=== PATIENT | female | born 1940 | race African-American/Black ===

== ENCOUNTER 2017-06-10 06:11 | Day surgery (SDC) | payer MEDICARE, MEDICAID ==
[~2017-06-10] VITALS: Ht 167.6 cm; Wt 80.7 kg
[~2017-06-10 06:11] MED LIST: APIX5TAB PO; CYCLOPENTOLATE HCL 1% OPHTH DROPS 2ML LEFTEYE NR; DILT240C3; DILT240C3 PO; LEVO75TA; MECL-109 PO; MELO-106 PO; OMEP20TA2 PO; OMEP40CA34; PHENYLEPHRINE HCL 10% OPHTH DROPS 5ML LEFTEYE NR; POTA20PA3; PRAV40TA58; TRIA1TAB92; TROPICAMIDE 1% OPHTH DROPS 15ML LEFTEYE NR; WARF2TAB57
[2017-06-10] MEDS ORDERED: LACTATED RINGERS 1,000 ML IV SCH (06:40)
[2017-06-10] MEDS ORDERED: BALANCED SALT IRRIG SOLN COMB1 500ML OP ONE (07:15)
[2017-06-10] MEDS ORDERED: HYALURONATE SODIUM 14 MG/ML 0.85ML SYRINGE IO ONE (07:35)
[2017-06-10] MEDS ORDERED: MEPERIDINE HCL/PF 25MG/ML CPJ IV PRN (07:45)
[2017-06-10] MEDS ORDERED: ONDANSETRON HCL 4MG/2ML VIAL IV PRN (07:45)
[2017-06-10] MEDS ORDERED: LABETALOL HCL 5MG/ML VIAL 20ML IV PRN (07:45)
[2017-06-10] MEDS ORDERED: FENTANYL CITRATE/PF 50MCG/ML 2ML VIAL ONE (07:47)
[2017-06-10] MEDS ORDERED: MIDAZOLAM HCL 2 MG/2 ML VIAL ONE (07:48)
[2017-06-10] MEDS ORDERED: PROPOFOL 200MG/20ML VIAL IV ONE (07:49)
[2017-06-10] MEDS ORDERED: LIDOCAINE HCL/PF 1% 10 MG/ML 5ML VIAL ONE (07:50)
[2017-06-10] MEDS ORDERED: TETRACAINE 0.5% OPHTH DROPS 4ML ONE (10:21)
[2017-06-10] MEDS ORDERED: LIDOCAINE HCL/PF 2% 20 MG/ML 10ML VIAL ONE (10:21)
[2017-06-10] MEDS ORDERED: CIPROFLOXACIN 0.3% OPHTH SOLN 2.5ML ONE (10:21)
[2017-06-10] MEDS ORDERED: BALANCED SALT IRRIG SOLN 15ML ONE (10:21)
[2017-06-10] MEDS ORDERED: NEO/POLYMYX B SULF/DEXAMETH OPHTH OINT 3.5GM ONE (10:21)
[2017-06-10] MEDS ORDERED: ACETYLCHOLINE CHLORIDE INTRAOCULAR SOLUTION 1:100 ELECTROLYTE DILUENT IO ONE (10:21)
[2017-06-10] MEDS ORDERED: LIDOCAINE HCL 2%/EPINEPHRINE 1:100,000 20 ML VIAL INFIL ONE (10:21)
[2017-06-10] MEDS ORDERED: PREDNISOLONE ACETATE 1% OPHTH DROPS 1ML ONE (10:21)
[2017-06-10] MEDS ORDERED: BUPIVACAINE HCL/PF 0.75% (7.5MG/ML) 10ML ONE (10:21)
== END 2017-06-10 09:45 | disposition home or self-care (01) ==
LOC: OR 06:11
PROVIDERS: ATTEND Ophthalmology
DX: H25.89 Other age-related cataract (principal); I10 Essential (primary) hypertension; E03.8 Other specified hypothyroidism; K21.9 Gastro-esophageal reflux disease without esophagitis; J45.909 Unspecified asthma, uncomplicated; E78.00 Pure hypercholesterolemia, unspecified; M19.90 Unspecified osteoarthritis, unspecified site; Z98.890 Other specified postprocedural states; Z90.710 Acquired absence of both cervix and uterus; Z85.3 Personal history of malignant neoplasm of breast; Z85.850 Personal history of malignant neoplasm of thyroid; Z79.899 Other long term (current) drug therapy
CPT/HCPCS: 66984; J2250; J3010; J3490; V2632; J2704

== ENCOUNTER 2017-08-05 06:21 | Day surgery (SDC) | payer MEDICARE, MEDICAID ==
[~2017-08-05] VITALS: Ht 167.6 cm; Wt 80.7 kg
[~2017-08-05 06:21] MED LIST changes: -CYCLOPENTOLATE HCL 1% OPHTH DROPS 2ML LEFTEYE NR; -PHENYLEPHRINE HCL 10% OPHTH DROPS 5ML LEFTEYE NR; -TROPICAMIDE 1% OPHTH DROPS 15ML LEFTEYE NR
[2017-08-05] MEDS ORDERED: BALANCED SALT IRRIG SOLN COMB1 500ML OP ONE (06:30)
[2017-08-05] MEDS ORDERED: PHENYLEPHRINE HCL 10% OPHTH DROPS 5ML RIGHTEYE ONE (07:40)
[2017-08-05] MEDS ORDERED: CYCLOPENTOLATE HCL 1% OPHTH DROPS 2ML RIGHTEYE ONE (07:40)
[2017-08-05] MEDS ORDERED: TROPICAMIDE 1% OPHTH DROPS 15ML RIGHTEYE ONE (07:40)
[2017-08-05] MEDS ORDERED: CHOL100044 PO (08:13)
[2017-08-05] MEDS ORDERED: LACTATED RINGERS 1,000 ML IV SCH (08:15)
[2017-08-05] MEDS ORDERED: [UNRECOGNIZED DRUG - OTHER] BOTHEYE (08:18)
[2017-08-05] MEDS ORDERED: ALBU18HF2 INH (08:18)
[2017-08-05] MEDS ORDERED: CYCL30DR BOTHEYE (08:18)
[2017-08-05 08:33] LABS: BASOPHILS % 0.7 % (0.0-2.0); EOSINOPHILS % 1.7 % (0.0-5.0); HEMATOCRIT. 40.5 % (36.0-48.0); HEMOGLOBIN. 13.3 g/dL (12.0-16.0); LYMPHOCYTES % 31.1 % (20.0-50.0); MEAN CORPUSCULAR HEMOGLOBIN 28.8 pg (28.0-32.0); MEAN CORPUSCULAR VOLUME 87.9 fL (81.0-99.0); MEAN PLATELET VOLUME 9.6 fl (7.4-10.4); MONOCYTES % 6.7 % (2.0-8.0); NEUTROPHILS % 59.8 % (40.0-76.0); PLATELET 214 x1000/uL (130-400)
[2017-08-05 08:39] LABS: CHLORIDE 112 mEq/L (98-107)
[2017-08-05] MEDS ORDERED: HYALURONATE SODIUM 14 MG/ML 0.85ML SYRINGE IO ONE (10:45)
[2017-08-05] MEDS ORDERED: PROPOFOL 200MG/20ML VIAL IV ONE (11:09)
[2017-08-05] MEDS ORDERED: NEO/POLYMYX B SULF/DEXAMETH OPHTH OINT 3.5GM ONE (11:14)
[2017-08-05] MEDS ORDERED: LIDOCAINE HCL 2%/EPINEPHRINE 1:100,000 20 ML VIAL INFIL ONE (11:14)
[2017-08-05] MEDS ORDERED: LIDOCAINE HCL/PF 2% 20 MG/ML 10ML VIAL ONE (11:14)
[2017-08-05] MEDS ORDERED: BUPIVACAINE HCL/PF 0.75% (7.5MG/ML) 10ML ONE (11:14)
[2017-08-05] MEDS ORDERED: BALANCED SALT IRRIG SOLN 15ML ONE (11:14)
[2017-08-05] MEDS ORDERED: TETRACAINE 0.5% OPHTH DROPS 4ML ONE (11:14)
[2017-08-05] MEDS ORDERED: CIPROFLOXACIN 0.3% OPHTH SOLN 2.5ML ONE (11:14)
[2017-08-05] MEDS ORDERED: PREDNISOLONE ACETATE 1% OPHTH DROPS 1ML ONE (11:14)
[2017-08-05] MEDS ORDERED: MIDAZOLAM HCL 2 MG/2 ML VIAL ONE (11:20)
[2017-08-05] MEDS ORDERED: HYDROMORPHONE HCL/PF 2MG/ML CPJ IV PRN (11:30)
[2017-08-05] MEDS ORDERED: ONDANSETRON HCL 4MG/2ML VIAL IV PRN (11:30)
[2017-08-05] MEDS ORDERED: LABETALOL 5MG/ML SYR 20 MG/4 ML SYRINGE IV PRN (11:30)
[2017-08-05] MEDS ORDERED: MEPERIDINE HCL/PF 25MG/ML CPJ IV PRN (11:30)
== END 2017-08-05 12:40 | disposition home or self-care (01) ==
LOC: OR 06:21
PROVIDERS: ATTEND Ophthalmology
DX: H25.89 Other age-related cataract (principal); I10 Essential (primary) hypertension; E03.9 Hypothyroidism, unspecified; K21.9 Gastro-esophageal reflux disease without esophagitis; M19.90 Unspecified osteoarthritis, unspecified site; J45.909 Unspecified asthma, uncomplicated; Z85.3 Personal history of malignant neoplasm of breast; Z85.238 Personal history of other malignant neoplasm of thymus
CPT/HCPCS: 36415; 66984; 80048; 85025; 93005; J2250; J3490; J7120; V2632; J2704

== ENCOUNTER → 2021-09-18 | Day surgery (SDC) | payer MEDICARE, MEDICAID ==
[~2021-09-18] VITALS: Ht 167.6 cm; Wt 81.6 kg
[~2021-09-18] MED LIST changes: +ALBU18HF2 INH; +AMLO10TA4 PO; +CHOL100044 PO; +CYCL30DR BOTHEYE; -DILT240C3; -DILT240C3 PO; +DILT240C94 PO; +FENTANYL CITRATE/PF 50MCG/ML 2ML VIAL ONE; +HYDR25TA PO; +KETOROLAC 30MG/ML VIAL ONE; +LACTATED RINGERS 1,000 ML IV SCH; -LEVO75TA; +LEVO75TA PO; -MECL-109 PO; +MECL-159 PO; +MIDAZOLAM HCL 2 MG/2 ML VIAL ONE; -OMEP40CA34; +PROPOFOL 200MG/20ML VIAL IV ONE; +ROSU40TA PO; +TRIA50CA2 PO; +[UNRECOGNIZED DRUG - OTHER] BOTHEYE
== END | disposition home or self-care (01) ==
LOC: SURGERY 08:49
PROVIDERS: ATTEND Ophthalmology
DX: H02.825 Cysts of left lower eyelid (principal); I10 Essential (primary) hypertension; E78.00 Pure hypercholesterolemia, unspecified; I25.10 Atherosclerotic heart disease of native coronary artery without angina pectoris; J45.909 Unspecified asthma, uncomplicated; E03.9 Hypothyroidism, unspecified; Z79.899 Other long term (current) drug therapy; Z98.890 Other specified postprocedural states; Z20.822 Contact with and (suspected) exposure to COVID-19
CPT/HCPCS: 67800; 87070; 87075; 87205; 87426; 88305; J1885; J2250; J2704; J3010